=== PATIENT | female | born 1930 | race Caucasian/White ===

== ENCOUNTER 2018-03-07 20:17 | Inpatient (IN) | payer MEDICARE ==
[~2018-03-07] VITALS: Ht 160 cm; Wt 50.0 kg
[2018-03-07 20:33] VITALS: BP 135/75; PULSE 103; RESP 18; TEMP 98.4; O2SAT 95
[2018-03-07] MEDS ORDERED: SIMV10TA PO (21:13)
[2018-03-07] MEDS ORDERED: MULT-65 PO (21:13)
[2018-03-07] MEDS ORDERED: ASPI81CH7 CHEW (21:13)
[2018-03-07] MEDS ORDERED: GLUC500C5 PO (21:13)
[2018-03-07 21:14] VITALS: RESP 20; TEMP 100.4; O2SAT 96
--- NOTE | 2018-03-07 21:14 | PD ---
HPI Chief Complaint: Pain: Acute or Chronic Time Seen by Provider: 20:54 Travel History International Travel<30 days: No Contact w/Intl Traveler<30days: No Traveled to known affect area: No History of Present Illness HPI This is an 87-year-old female who has a history of porcine aortic valve replacement, pacemaker, presents with her daughter for evaluation. For the past 3 weeks she has had a cough for the cough is occasionally productive with clear sputum. She has had some dyspnea on exertion as well. Today she developed pain and swelling in her right calf. The pain is an aching pain which is worse when walking, improved with use of Tylenol. She was seen at an urgent care center where she was noted to have a fever of 101.2. She was sent here for further evaluation of the symptoms. Her daughter reports that she is from [place], travel down here in November and was planning on returning to [place] in 3 days. She denies any abdominal pain, dysuria, chest pain, nausea, vomiting , flank pain, open wounds. She has no history of PE, DVT, CHF. The daughter notes that she was treated in October for pneumonia. No other complaints at this time. PFSH Past Medical History Cardiovascular Problems: Yes (aortic valve replacement 2010) Diminished Hearing: Yes Pneumonia: Yes Influenza Vaccination: No Past Surgical History Body Medical Devices: pacemaker Cardiac Surgery: Yes (aortic valve repl-t, pacemaker) Gynecologic Surgery: Yes (hysterectomy) Social History Alcohol Use: Yes (occas) Tobacco Use: No Substance Use: No Allergies-Medications (Allergen,Severity, Reaction): Coded Allergies: No Known Allergies (Unverified , 03/07/18) Reported Meds & Prescriptions Reported Meds & Active Scripts Active Potassium Chloride ER (Potassium Chloride) 20 Meq Tab 20 Meq PO DAILY PRN Lasix (Furosemide) 20 Mg Tab 20 Mg PO DAILY PRN Cefuroxime (Cefuroxime Axetil) 500 Mg Tab 500 Mg PO BID Start antibiotics on 03/09/18 Azithromycin 250 Mg Tab 500 Mg PO DAILY Reported Glucosamine (Glucosamine Sulfate) 500 Mg Cap 500 Mg PO DAILY Multi-Vitamin Daily (Multiple Vitamin) 1 Tab Tab 1 Tab PO DAILY Simvastatin 10 Mg Tab 10 Mg PO DAILY Aspirin Children's (Aspirin) 81 Mg Chew 81 Mg CHEW DAILY Review of Systems Except as stated in HPI: all other systems reviewed are Neg Physical Exam Narrative GENERAL: Pleasant well-developed well-nourished female no acute distress. Temperature 100.4. SKIN: Warm and dry. HEAD: Atraumatic. Normocephalic. EYES: Pupils equal and round. No scleral icterus. No injection or drainage. ENT: No nasal bleeding or discharge. Mucous membranes pink and moist. NECK: Trachea midline. No JVD. CARDIOVASCULAR: Regular rate and rhythm. No murmur appreciated. RESPIRATORY: No accessory muscle use. Some crackles noted at the lung bases. GASTROINTESTINAL: Abdomen soft, non-tender, nondistended. Hepatic and splenic margins not palpable. MUSCULOSKELETAL: No obvious deformities. 1+ pitting edema right pretibial region. No edema in the left lower extremity. No tenderness to palpation of the right calf or thigh. 2+ dorsalis pedis pulse bilaterally. NEUROLOGICAL: Awake and alert. No obvious cranial nerve deficits. Motor grossly within normal limits. Normal speech. Data Data Last Documented VS Vital Signs Date Time Temp Pulse Resp B/P (MAP) Pulse Ox O2 Delivery O2 Flow Rate FiO2 03/07/18 21:14 96 Room Air 03/07/18 21:14 100.4 03/07/18 21:14 20 03/07/18 20:33 103 135/75 (95) Orders Orders Sepsis Workup Initiated (03/07/18 ) Electrocardiogram (03/07/18 21:08) Complete Blood Count With Diff (03/07/18 21:08) Comprehensive Metabolic Panel (03/07/18 21:08) Prothrombin Time / Inr (Pt) (03/07/18 21:08) Act Partial Throm Time (Ptt) (03/07/18 21:08) Lactic Acid Sepsis Protocol (03/07/18 21:08) Magnesium (Mg) (03/07/18 21:08) Ckmb (Isoenzyme) Profile (03/07/18 21:08) Troponin I (03/07/18 21:08) Urinalysis - C+S If Indicated (03/07/18 21:08) Influenzae A/B Antigen (03/07/18 21:08) Blood Culture (03/07/18 21:08) Chest, Single Ap (03/07/18 21:08) Blood Glucose (03/07/18 21:08) Ecg Monitoring (03/07/18 21:08) Iv Access Insert/Monitor (03/07/18 21:08) Oximetry (03/07/18 21:08) Oxygen Administration (03/07/18 21:08) B-Type Natriuretic Peptide (03/07/18 21:08) Ct Pulmonary Angiogram (03/07/18 21:08) Us Leg Venous Doppler (03/07/18 21:08) Acetaminophen (Tylenol) (03/07/18 21:15) Ceftriaxone Inj (Rocephin Inj) (03/07/18 21:45) Azithromycin Inj (Zithromax Inj) (03/07/18 21:45) Sodium Chlor 0.9% 1000 Ml Inj (Ns 1000 M (03/07/18 21:48) CKMB (03/07/18 21:25) CKMB% (03/07/18 21:25) Iohexol 350 Inj (Omnipaque 350 Inj) (03/07/18 23:01) Admit Order (Ed Use Only) (03/08/18 ) Diabetes Physician / Telemetry [email or web address] (03/08/18 00:04) Activity Oob With Assistance (03/08/18 00:04) Notify Dr: Other (03/08/18 00:04) Labs Laboratory Tests Test 03/07/18 21:25 03/07/18 21:45 White Blood Count 12.8 TH/MM3 Red Blood Count 4.72 MIL/MM3 Hemoglobin 13.7 GM/DL Hematocrit 41.8 % Mean Corpuscular Volume 88.6 FL Mean Corpuscular Hemoglobin 29.0 PG Mean Corpuscular Hemoglobin Concent 32.7 % Red Cell Distribution Width 15.0 % Platelet Count 170 TH/MM3 Mean Platelet Volume 10.1 FL Neutrophils (%) (Auto) 87.6 % Lymphocytes (%) (Auto) 4.4 % Monocytes (%) (Auto) 7.3 % Eosinophils (%) (Auto) 0.2 % Basophils (%) (Auto) 0.5 % Neutrophils # (Auto) 11.2 TH/MM3 Lymphocytes # (Auto) 0.6 TH/MM3 Monocytes # (Auto) 0.9 TH/MM3 Eosinophils # (Auto) 0.0 TH/MM3 Basophils # (Auto) 0.1 TH/MM3 CBC Comment DIFF FINAL Differential Comment Prothrombin Time 11.2 SEC Prothromb Time International Ratio 1.1 RATIO Activated Partial Thromboplast Time 22.9 SEC Blood Urea Nitrogen 17 MG/DL Creatinine 1.04 MG/DL Random Glucose 124 MG/DL Total Protein 7.2 GM/DL Albumin 3.3 GM/DL Calcium Level 8.9 MG/DL Magnesium Level 2.2 MG/DL Alkaline Phosphatase 113 U/L Aspartate Amino Transf (AST/SGOT) 74 U/L Alanine Aminotransferase (ALT/SGPT) 52 U/L Total Bilirubin 0.6 MG/DL Sodium Level 142 MEQ/L Potassium Level 4.3 MEQ/L Chloride Level 106 MEQ/L Carbon Dioxide Level 26.7 MEQ/L Anion Gap 9 MEQ/L Estimat Glomerular Filtration Rate 50 ML/MIN Lactic Acid Level 1.3 mmol/L Total Creatine Kinase 115 U/L Creatine Kinase MB 2.6 NG/ML Troponin I 0.03 NG/ML B-Type Natriuretic Peptide 868 PG/ML Urine Color YELLOW Urine Turbidity CLEAR Urine pH 6.5 Urine Specific [place] 1.014 Urine Protein 30 mg/dL Urine Glucose (UA) NEG mg/dL Urine Ketones NEG mg/dL Urine Occult Blood SMALL Urine Nitrite NEG Urine Bilirubin NEG Urine Urobilinogen LESS THAN 2.0 MG/DL Urine Leukocyte Esterase NEG Urine RBC 2 /hpf Urine WBC 1 /hpf Urine Squamous Epithelial Cells <1 /hpf Urine Mucus FEW /lpf Microscopic Urinalysis Comment CATH-CULT NOT IND MDM Medical Decision Making Medical Screen Exam Complete: Yes Emergency Medical Condition: Yes Medical Record Reviewed: Yes Interpretation(s) Right lower extremity ultrasound CONCLUSION: 1. The study is negative for lower extremity deep venous thrombosis. CBC reveals WBC count of 12.8 with 87% neutrophils, CMP reveals a GFR 50, BNP is 868. Urinalysis reveals small blood, 30 protein otherwise unremarkable Differential Diagnosis DVT, pneumonia, sepsis, CHF, PE Narrative Course The patient was placed on ECG monitoring pulse oximetry. A 12-lead EKG was obtained. Lab work, chest x-ray, CT pulmonary angiogram, right lower extremity Doppler ultrasound, blood cultures, urinalysis have been ordered. Patient was given IV Rocephin and azithromycin. At the end of my shift the patient was signed out pending CT pulmonary angiogram. Scripts Potassium Chloride ER (Potassium Chloride ER) 20 Meq Tab 20 MEQ PO DAILY Y for Take with Lasix, #30 TAB 0 Refills Prov: Satya Louie DO 03/08/18 Furosemide (Lasix) 20 Mg Tab 20 MG PO DAILY Y for leg swelling, #30 TAB 0 Refills Prov: Satya Louie DO 03/08/18 Cefuroxime (Cefuroxime) 500 Mg Tab 500 MG PO BID for Infection, #12 TAB 0 Refills Start antibiotics on 03/09/18 Prov: Satya Louie DO 03/08/18 Azithromycin (Azithromycin) 250 Mg Tab 500 MG PO DAILY for Infection, #3 TAB Prov: Satya Louie DO 03/08/18 Lowell Thomas March 07, 2018 21:14
[2018-03-07] MEDS ORDERED: ACETAMINOPHEN 325 MG TAB PO ONE (21:15)
--- NOTE | 2018-03-07 21:41 | RADRPT ---
EXAM DATE: 03/07/2018 9:35 PM EDT AGE/SEX: 87 years / Female INDICATIONS: Fever for one day. CLINICAL DATA: This is the patient's initial encounter. Patient reports that signs and symptoms have been present for 1 day and indicates a pain score of 0/10. MEDICAL/SURGICAL HISTORY: None. Pacemaker. Aortic valve replacement. COMPARISON: No prior [place] exams available for comparison. FINDINGS: A single AP portable erect view of the chest was obtained and demonstrates the patient is status post median sternotomy. There is a left subclavian A-V sequential transvenous pacer in place. The heart s ize appears mildly prominent. Mild patchy opacity is present at the lung bases with no distinct effus ion. Bony thorax is intact. There are multiple overlying electrocardiogram leads. CONCLUSION: 1. Mild patchy opacity at the lung bases which may represent scarring. 2. Status post median sternotomy with mild cardiomegaly and no perihilar edema. Electronically signed by: Satya iBlly MD 03/07/2018 9:39 PM EDT
[2018-03-07] MEDS ORDERED: cefTRIAXone INJ 1,000 MG in SODIUM CHLORIDE 0.9% INJ 100 ML IV ONE (21:45)
[2018-03-07] MEDS ORDERED: AZITHROMYCIN INJ 500 MG in SODIUM CHLOR 0.9% 250 ML INJ 250 ML IV ONE (21:45)
[2018-03-07] MEDS ORDERED: SODIUM CHLOR 0.9% 1000 ML INJ 1,000 ML IV SCH (21:48)
[2018-03-07 21:52] LABS: AUTOMATED NEUTROPHIL # 11.2 TH/MM3 (1.8-7.7); BASOPHIL # 0.1 TH/MM3 (0-0.2); BASOPHIL % 0.5 % (0.0-2.0); EOSINOPHIL % 0.2 % (0.0-4.0); HEMATOCRIT 41.8 % (35.0-46.0); HEMOGLOBIN 13.7 GM/DL (11.6-15.3); LYMPH % 4.4 % (9.0-44.0); LYMPHOCYTE # 0.6 TH/MM3 (1.0-4.8); MEAN CELL VOLUME 88.6 FL (80.0-100.0); MEAN CORPUSCULAR HGB CONC 32.7 % (32.0-36.0); MEAN PLATELET VOLUME 10.1 FL (7.0-11.0); MONO % 7.3 % (0.0-8.0); MONOCYTE # 0.9 TH/MM3 (0-0.9); NEUT % 87.6 % (16.0-70.0); PLATELET COUNT 170 TH/MM3 (150-450); RED BLOOD COUNT 4.72 MIL/MM3 (4.00-5.30); WHITE BLOOD COUNT 12.8 TH/MM3 (4.0-11.0)
--- NOTE | 2018-03-07 22:09 | RADRPT ---
EXAM DATE: 03/07/2018 10:06 PM EDT AGE/SEX: 87 years / Female INDICATIONS: Right calf swelling with shortness of breath. CLINICAL DATA: This is the patient's initial encounter. Patient reports that signs and symptoms have been present for 3 weeks and indicates a pain score of 3/10. MEDICAL/SURGICAL HISTORY: Cardiovascular disease. Hysterectomy. Pacemaker. Aortic valve replac ement. COMPARISON: No prior [place] exams available for comparison. No external comparison. TECHNIQUE: Venous ultrasound of both lower extremities was performed from the inguinal ligament to t he proximal calf. Real-time, color Doppler and spectral tracing, compression and augmentation techni ques were used. FINDINGS: There is normal compressibility of the deep venous system from the inguinal region to the proximal ca lf. No echogenic clot is seen in the lumen of the common femoral, femoral, popliteal, and posterior tibial veins. There is a normal response of the venous system to proximal and distal augmentation an d respiration. CONCLUSION: 1. The study is negative for lower extremity deep venous thrombosis. Electronically signed by: Kwabena Coleman MD 03/07/2018 10:08 PM EDT
[2018-03-07 22:12] LABS: INTERNATIONAL NORMALIZED RATIO 1.1 RATIO; PROTHROMBIN TIME - PATIENT 11.2 SEC (9.8-11.6)
[2018-03-07 22:14] LABS: ALBUMIN 3.3 GM/DL (3.4-5.0); AST (GOT) 74 U/L (15-37); BICARBONATE 26.7 MEQ/L (21.0-32.0); BLOOD UREA NITROGEN 17 MG/DL (7-18); CALCIUM 8.9 MG/DL (8.5-10.1); CHLORIDE 106 MEQ/L (98-107); CREATININE 1.04 MG/DL (0.50-1.00); GLOMERULAR FILTRATION RATE 50 ML/MIN (>89); GLUCOSE,RANDOM 124 MG/DL (74-106); MAGNESIUM 2.2 MG/DL (1.5-2.5); SODIUM (NA) 142 MEQ/L (136-145)
[2018-03-07 22:15] LABS: ALT (GPT) 52 U/L (10-53)
[2018-03-07 22:19] LABS: ALKALINE PHOSPHATASE 113 U/L (45-117); TOTAL BILIRUBIN ADULT 0.6 MG/DL (0.2-1.0); TOTAL PROTEIN 7.2 GM/DL (6.4-8.2); TROPONIN I 0.03 NG/ML (0.02-0.05)
[2018-03-07 22:23] LABS: BILIRUBIN, URINE NEG (NEG); BLOOD, URINE SMALL (NEG); GLUCOSE,URINE NEG (NEG); KETONE, URINE NEG (NEG); MUCUS URINE FEW /lpf (OCC); NITRITE,URINE NEG (NEG); PH, URINE 6.5 (5.0-8.5); SQUAMOUS EPITHELIAL CELL URINE <1 /hpf (0-5); URINE COLOR YELLOW (YELLW/STRAW); URINE LEUKOCYTE ESTERASE NEG (NEG)
[2018-03-07] MEDS ORDERED: IOHEXOL 350 MG/ML 10 ML VIAL (for RAD DIAG) IVCONTRAST ONE (23:01)
--- NOTE | 2018-03-07 23:02 | PD ---
Physical Exam Date Seen by Provider: March 07, 2018 Time Seen by Provider: 23:01 Narrative accepted patient care@ 2300 GENERAL: Elderly female with supplemental oxygen in place resting supine in no acute respiratory distress with O2 saturation on 2 L/min nasal cannula 93%. SKIN: Warm and dry. HEAD: Normocephalic. EYES: No scleral icterus. No injection or drainage. NECK: Supple, trachea midline. No JVD or lymphadenopathy. CARDIOVASCULAR: Regular rate and rhythm without murmurs, gallops, or rubs. RESPIRATORY: Breath sounds equal bilaterally. No accessory muscle use. Bibasilar crackles to auscultation. GASTROINTESTINAL: Abdomen soft, non-tender, nondistended. MUSCULOSKELETAL: No cyanosis, or edema. Right lower extremity redness increased warmth tenderness and edema of the lower leg sparing the foot. Bilateral radial and dorsalis pedis pulses 2+ to palpation. BACK: Nontender without obvious deformity. No CVA tenderness. Data Data Last Documented VS Vital Signs Date Time Temp Pulse Resp B/P (MAP) Pulse Ox O2 Delivery O2 Flow Rate FiO2 03/07/18 21:14 96 Room Air 03/07/18 21:14 100.4 03/07/18 21:14 20 03/07/18 20:33 103 135/75 (95) Orders Orders Sepsis Workup Initiated (03/07/18 ) Electrocardiogram (03/07/18 21:08) Complete Blood Count With Diff (03/07/18 21:08) Comprehensive Metabolic Panel (03/07/18 21:08) Prothrombin Time / Inr (Pt) (03/07/18 21:08) Act Partial Throm Time (Ptt) (03/07/18 21:08) Lactic Acid Sepsis Protocol (03/07/18 21:08) Magnesium (Mg) (03/07/18 21:08) Ckmb (Isoenzyme) Profile (03/07/18 21:08) Troponin I (03/07/18 21:08) Urinalysis - C+S If Indicated (03/07/18 21:08) Influenzae A/B Antigen (03/07/18 21:08) Blood Culture (03/07/18 21:08) Chest, Single Ap (03/07/18 21:08) Blood Glucose (03/07/18 21:08) Ecg Monitoring (03/07/18 21:08) Iv Access Insert/Monitor (03/07/18 21:08) Oximetry (03/07/18 21:08) Oxygen Administration (03/07/18 21:08) B-Type Natriuretic Peptide (03/07/18 21:08) Ct Pulmonary Angiogram (03/07/18 21:08) Us Leg Venous Doppler (03/07/18 21:08) Acetaminophen (Tylenol) (03/07/18 21:15) Ceftriaxone Inj (Rocephin Inj) (03/07/18 21:45) Azithromycin Inj (Zithromax Inj) (03/07/18 21:45) Sodium Chlor 0.9% 1000 Ml Inj (Ns 1000 M (03/07/18 21:48) CKMB (03/07/18 21:25) CKMB% (03/07/18 21:25) Iohexol 350 Inj (Omnipaque 350 Inj) (03/07/18 23:01) Admit Order (Ed Use Only) (03/08/18 ) Terminal System Operator / Telemetry [email or web address] (03/08/18 00:04) Activity Oob With Assistance (03/08/18 00:04) Notify Dr: Other (03/08/18 00:04) Labs Laboratory Tests Test 03/07/18 21:25 03/07/18 21:45 White Blood Count 12.8 TH/MM3 Red Blood Count 4.72 MIL/MM3 Hemoglobin 13.7 GM/DL Hematocrit 41.8 % Mean Corpuscular Volume 88.6 FL Mean Corpuscular Hemoglobin 29.0 PG Mean Corpuscular Hemoglobin Concent 32.7 % Red Cell Distribution Width 15.0 % Platelet Count 170 TH/MM3 Mean Platelet Volume 10.1 FL Neutrophils (%) (Auto) 87.6 % Lymphocytes (%) (Auto) 4.4 % Monocytes (%) (Auto) 7.3 % Eosinophils (%) (Auto) 0.2 % Basophils (%) (Auto) 0.5 % Neutrophils # (Auto) 11.2 TH/MM3 Lymphocytes # (Auto) 0.6 TH/MM3 Monocytes # (Auto) 0.9 TH/MM3 Eosinophils # (Auto) 0.0 TH/MM3 Basophils # (Auto) 0.1 TH/MM3 CBC Comment DIFF FINAL Differential Comment Prothrombin Time 11.2 SEC Prothromb Time International Ratio 1.1 RATIO Activated Partial Thromboplast Time 22.9 SEC Blood Urea Nitrogen 17 MG/DL Creatinine 1.04 MG/DL Random Glucose 124 MG/DL Total Protein 7.2 GM/DL Albumin 3.3 GM/DL Calcium Level 8.9 MG/DL Magnesium Level 2.2 MG/DL Alkaline Phosphatase 113 U/L Aspartate Amino Transf (AST/SGOT) 74 U/L Alanine Aminotransferase (ALT/SGPT) 52 U/L Total Bilirubin 0.6 MG/DL Sodium Level 142 MEQ/L Potassium Level 4.3 MEQ/L Chloride Level 106 MEQ/L Carbon Dioxide Level 26.7 MEQ/L Anion Gap 9 MEQ/L Estimat Glomerular Filtration Rate 50 ML/MIN Lactic Acid Level 1.3 mmol/L Total Creatine Kinase 115 U/L Creatine Kinase MB 2.6 NG/ML Troponin I 0.03 NG/ML B-Type Natriuretic Peptide 868 PG/ML Urine Color YELLOW Urine Turbidity CLEAR Urine pH 6.5 Urine Specific [place] 1.014 Urine Protein 30 mg/dL Urine Glucose (UA) NEG mg/dL Urine Ketones NEG mg/dL Urine Occult Blood SMALL Urine Nitrite NEG Urine Bilirubin NEG Urine Urobilinogen LESS THAN 2.0 MG/DL Urine Leukocyte Esterase NEG Urine RBC 2 /hpf Urine WBC 1 /hpf Urine Squamous Epithelial Cells <1 /hpf Urine Mucus FEW /lpf Microscopic Urinalysis Comment CATH-CULT NOT IND MDM Medical Record Reviewed: Yes Supervised Visit with SHERIF: Yes (And mid-level provider) Differential Diagnosis Febrile illness, sepsis, Sirs, cellulitis, DVT, PE, CHF, pneumonia, bronchitis, viral syndrome, ACS Narrative Course I, Dr. Cat, have reviewed the advance practice practitioner's documentation and am in agreement, met with the patient face to face, made the diagnosis, and the medical decision making was done by me. *My assessment and Findings: 87-year-old female with 3 weeks of cough productive of clear sputum more recently developing fever and redness and swelling of the right lower extremity. Patient had no chest pain has history of porcine valve replacement CABG and 2 pillow orthopnea. Patient is visiting from [place] with plans to return on Sunday. Patient has been here for over a month. Patient was seen in urgent care and encouraged to come to the emergency room for evaluation for DVT and for febrile illness. Patient denies any chest pain. Patient does not typically use supplemental oxygen. Patient has had dyspnea on exertion. No report of hemoptysis. Right lower leg has been painful. Patient did take acetaminophen for pain. At urgent care temperature was 101.2F without any antipyretic therapy administered. Febrile illness, sepsis, pneumonia, DVT, cellulitis, PE, CHF, ACS Concur with IV access cardiac monitoring with continuous pulse oximetry supplemental oxygen EKG CBC metabolic panel lactic acid blood cultures chest x- ray ultrasound of right lower extremity to evaluate for DVT PE protocol CT and administration of IV antibiotics for community-acquired pneumonia Patient evaluated and has bibasilar crackles right lower extremity has increased redness warmth tenderness and lower leg edema without foot involvement. Patient is identified to have leukocytosis normal range lactic acid EKG is paced rhythm troponin I is 0.03 not elevated however BNP is elevated at 868. No prior history of CHF. Patient appears to have pleural effusion mild volume overload received one-time dose of Lasix 20 mg IV has received IV antibiotics for community-acquired pneumonia which will also cover for cellulitis with Rocephin and azithromycin. Patient's case discussed with on-call medicine for admission for ongoing serial enzymes gentle diuresis and IV antibiotics. Patient and patient's daughter agreeable with admission. Patient's case discussed with on-call medicine [facility] MD Dr Raymond. Sepsis Criteria SIRS Criteria (2 or more): Temp > 100.9 or < 96.8, WBC > 46220, < 4000 or > 10 % bands Sepsis Criteria (SIRS+source): Infect source susp/known (cellulitis RLE) Physician Communication Physician Communication discussed with Dr Raymond Diagnosis Primary Impression: Febrile illness, acute Additional Impressions: Cellulitis Sepsis Pulmonary vascular congestion Admitting Information Admitting Physician Requests: Admit Luanne Cat MD March 07, 2018 23:02
--- NOTE | 2018-03-07 23:15 | RADRPT ---
EXAM DATE: 03/07/2018 11:06 PM EDT AGE/SEX: 87 years / Female INDICATIONS: Right leg pain. CLINICAL DATA: This is the patient's initial encounter. Patient reports that signs and symptoms have been present for 1 day and indicates a pain score of 0/10. MEDICAL/SURGICAL HISTORY: None. . Aortic valve replacement. RADIATION DOSE: 5.58 CTDI (mGy) COMPARISON: No prior [place] exams available for comparison. TECHNIQUE: Volumetric scanning was performed using a multi-row detector CT scanner during bolus infu julieta of 50 ml Omnipaque 350 (iohexol) nonionic water-soluble contrast as a single exam dose. The allie a was post processed with a variety of visualization algorithms including full volume maximum intensi ty projection and sliding thin slab reformation. Using automated exposure control and adjustment of the mA and/or kV according to patient size, radiation dose was kept as low as reasonably achievable t o obtain optimal diagnostic quality images. FINDINGS: Pulmonary Arteries: No filling defects are seen in the pulmonary arteries out to the subsegmental ve ssels. The left and right pulmonary arteries are normal in diameter. Lung: There is a focal area of consolidation or atelectasis at the lateral right lower lobe and patc hy areas of consolidation or atelectasis in the posterior lower lobes bilaterally. There is subpleura l atelectasis or consolidation seen at the medial inferior left lingula.. Effusion: There are mild bilateral pleural effusions. Mediastinum: No evidence of mediastinal or hilar adenopathy. There is a pacemaker seen in the left c hest. The patient is status post sternotomy. Other: The axilla is unremarkable. CONCLUSION: 1. No pulmonary embolus. 2. Patchy areas of consolidation or atelectasis at the lower lungs. 3. Bilateral mild pleural effusions.. Electronically signed by: Rodríguez Hastings MD 03/07/2018 11:14 PM EDT
[2018-03-08] VITALS (8 sets, daily range): BP systolic 103–138; BP diastolic 55–67; PULSE 65–84; RESP 17–19; TEMP 98.1; O2SAT 93–96
[2018-03-08] MEDS ORDERED: FUROSEMIDE 20 MG/2 ML VIAL IV PUSH ONE ×2 (00:15)
[2018-03-08] MEDS ORDERED: NALOXONE HCL 0.4 MG/ML AMP IV PUSH PRN (00:15)
[2018-03-08] MEDS ORDERED: SENNOSIDES 8.6 MG TAB PO PRN (00:15)
[2018-03-08] MEDS ORDERED: ONDANSETRON ODT 4 MG TAB PO PRN (00:15)
[2018-03-08] MEDS ORDERED: SODIUM CHLORIDE 0.9% FLUSH 10 ML FLUSH IV FLUSH PRN (00:15)
[2018-03-08] MEDS ORDERED: LACTULOSE SYRUP 20 GM/30 ML CUP PO PRN (00:15)
[2018-03-08] MEDS ORDERED: ACETAMINOPHEN 325 MG TAB PO PRN (00:15)
[2018-03-08] MEDS ORDERED: MAGNESIUM HYDROXIDE SUSP 30 ML CUP PO PRN (00:15)
[2018-03-08] MEDS ORDERED: BISACODYL 10 MG SUPP RECTAL PRN (00:15)
--- NOTE | 2018-03-08 00:25 | HHI.HP ---
[facility] Unknown Admission Diagnosis sepsis, cellulitis, pulm vasc congestion Diagnoses: Chief Complaint: Shortness of breath, right lower extremity redness Travel History International Travel<30 Days: No Contact w/Intl Traveler <30 Da: No Traveled to Known Affected Are: No History of Present Illness 87-year-old female with a history of porcine aortic valve replacement, pacemaker and presents to the ED with complaints of a cough, shortness of breath and right lower extremity redness. Patient states for the last 3 weeks she has had a cough with intermittent shortness of breath on exertion. Sputum production is clear. She presented today to an urgent care for evaluation and was found to have a 101 fever and sent to the ED for evaluation. Patient was diagnosed in October for pneumonia and treated according to patient she has not been completely healed. Family was concerned because she is supposed to be on a plane Sunday fly back home to concern for a DVT right lower extremity. Patient does follow with a kosher inspector in she follows up valve replacement. She denies associated chest pain, chills, dysuria, headaches. Denies any open wounds. Review of Systems Except as stated in HPI: all other systems reviewed are Neg Past Family Social History Past Medical History Hyperlipidemia Past Surgical History Pacemaker Hysterectomy Porcine aortic valve replacement Reported Medications Reported Meds & Active Scripts Active Reported Glucosamine (Glucosamine Sulfate) 500 Mg Cap 500 Mg PO DAILY Multi-Vitamin Daily (Multiple Vitamin) 1 Tab Tab 1 Tab PO DAILY Simvastatin 10 Mg Tab 10 Mg PO DAILY Aspirin Children's (Aspirin) 81 Mg Chew 81 Mg CHEW DAILY Allergies: Coded Allergies: No Known Allergies (Unverified , 03/07/18) Active Ordered Medications Current Medications Medications (Trade) Dose Ordered Sig/Shannan Route Start Time Stop Time Status Last Admin (NS Flush) 2 ml UNSCH PRN IV FLUSH 03/08/18 00:15 (NS Flush) 2 ml BID IV FLUSH 03/08/18 09:00 (Tylenol) 650 mg Q4H PRN PO 03/08/18 00:15 (Lovenox Inj) 40 mg Q24H SQ 03/08/18 01:00 (Narcan Inj) 0.4 mg UNSCH PRN IV PUSH 03/08/18 00:15 (Milk Of Magnesia Liq) 30 ml Q12H PRN PO 03/08/18 00:15 (Senokot) 17.2 mg Q12H PRN PO 03/08/18 00:15 (Dulcolax Supp) 10 mg DAILY PRN RECTAL 03/08/18 00:15 (Lactulose Liq) 30 ml DAILY PRN PO 03/08/18 00:15 (Zofran Odt) 4 mg Q6H PRN PO 03/08/18 00:15 Ceftriaxone Sodium 2000 mg/ Sodium Chloride 100 ml @ 200 mls/hr Q24H IV 03/08/18 09:00 (Zithromax) 500 mg DAILY PO 03/08/18 09:00 (Lasix Inj) 20 mg DAILY IV PUSH 03/08/18 09:00 03/11/18 08:59 (Aspirin Chew) 81 mg DAILY CHEW 03/08/18 09:00 UNV Non-Formulary Medication 10 mg DAILY PO 03/08/18 09:00 UNV Family History Dad: Pancreatic cancer Social History Tobacco use: Denies Alcohol use rarely Physical Exam Vital Signs Vital Signs Date Time Temp Pulse Resp B/P (MAP) Pulse Ox O2 Delivery O2 Flow Rate FiO2 03/07/18 21:14 96 Room Air 03/07/18 21:14 100.4 03/07/18 21:14 20 96 Room Air 03/07/18 20:33 98.4 103 18 135/75 (95) 95 Physical Exam GENERAL: This is a well-nourished, well-developed patient, in no apparent distress. SKIN: Mild erythema around right ankle HEAD: Atraumatic. Normocephalic. EYES: Pupils equal round and reactive. CARDIOVASCULAR: Regular rate and rhythm without murmurs, gallops, or rubs. RESPIRATORY: Crackles bilateral bases GASTROINTESTINAL: Abdomen soft, non-tender, nondistended. No hepato-splenomegaly , or palpable masses. No guarding. MUSCULOSKELETAL: Extremities without clubbing, cyanosis, or edema. No joint tenderness, effusion, or edema noted. No calf tenderness. NEUROLOGICAL: Awake and alert. Normal speech. Laboratory Laboratory Tests Test 03/07/18 21:25 03/07/18 21:45 White Blood Count 12.8 Red Blood Count 4.72 Hemoglobin 13.7 Hematocrit 41.8 Mean Corpuscular Volume 88.6 Mean Corpuscular Hemoglobin 29.0 Mean Corpuscular Hemoglobin Concent 32.7 Red Cell Distribution Width 15.0 Platelet Count 170 Mean Platelet Volume 10.1 Neutrophils (%) (Auto) 87.6 Lymphocytes (%) (Auto) 4.4 Monocytes (%) (Auto) 7.3 Eosinophils (%) (Auto) 0.2 Basophils (%) (Auto) 0.5 Neutrophils # (Auto) 11.2 Lymphocytes # (Auto) 0.6 Monocytes # (Auto) 0.9 Eosinophils # (Auto) 0.0 Basophils # (Auto) 0.1 CBC Comment DIFF FINAL Differential Comment Prothrombin Time 11.2 Prothromb Time International Ratio 1.1 Activated Partial Thromboplast Time 22.9 Blood Urea Nitrogen 17 Creatinine 1.04 Random Glucose 124 Total Protein 7.2 Albumin 3.3 Calcium Level 8.9 Magnesium Level 2.2 Alkaline Phosphatase 113 Aspartate Amino Transf (AST/SGOT) 74 Alanine Aminotransferase (ALT/SGPT) 52 Total Bilirubin 0.6 Sodium Level 142 Potassium Level 4.3 Chloride Level 106 Carbon Dioxide Level 26.7 Anion Gap 9 Estimat Glomerular Filtration Rate 50 Lactic Acid Level 1.3 Total Creatine Kinase 115 Creatine Kinase MB 2.6 Troponin I 0.03 B-Type Natriuretic Peptide 868 Urine Color YELLOW Urine Turbidity CLEAR Urine pH 6.5 Urine Specific [place] 1.014 Urine Protein 30 Urine Glucose (UA) NEG Urine Ketones NEG Urine Occult Blood SMALL Urine Nitrite NEG Urine Bilirubin NEG Urine Urobilinogen LESS THAN 2.0 Urine Leukocyte Esterase NEG Urine RBC 2 Urine WBC 1 Urine Squamous Epithelial Cells <1 Urine Mucus FEW Microscopic Urinalysis Comment CATH-CULT NOT IND Date/Time Source Procedure Growth Status 03/07/18 21:25 Blood Peripheral Aerobic Blood Culture Pending Received 03/07/18 21:25 Blood Peripheral Anaerobic Blood Culture Pending Received 03/07/18 21:40 Nasal Aspirate Influenza Types A,B Antigen (YU) - Final NEGATIVE FOR FLU A AND B ANTIGEN.... Complete Result Diagram: 03/07/18212403/07/182124 Imaging Last Impressions Lower Extremity Ultrasound 03/07/182107 Signed Impressions: CONCLUSION: 1. The study is negative for lower extremity deep venous thrombosis. Chest X-Ray 03/07/182107 Signed Impressions: CONCLUSION: 1. Mild patchy opacity at the lung bases which may represent scarring. 2. Status post median sternotomy with mild cardiomegaly and no perihilar edema . CT Angiography 03/07/182107 Signed Impressions: CONCLUSION: 1. No pulmonary embolus. 2. Patchy areas of consolidation or atelectasis at the lower lungs. 3. Bilateral mild pleural effusions.. Caprini VTE Risk Assessment Caprini VTE Risk Assessment: No/Low Risk (score <= 1) Caprini Risk Assessment Model Point Value = 1 Point Value = 2 Point Value = 3 Point Value = 5 Age 41-60 Minor surgery BMI > 25 kg/m2 Swollen legs Varicose veins or History of unexplained or recurrent spontaneous Oral contraceptives or hormone replacement Sepsis (< 1 month) Serious lung disease, including pneumonia (< 1 month) Abnormal pulmonary function Acute myocardial infarction Congestive heart failure (< 1 month) History of inflammatory bowel disease Medical patient at bed rest Age 61-74 Arthroscopic surgery Major open surgery (> 45 min) Laparoscopic surgery (> 45 min) Malignancy Confined to bed (> 72 hours) Immobilizing plaster cast Central venous access Age >= 75 History of VTE Family history of VTE Factor V Leiden Prothrombin [id number] Lupus anticoagulant Anticardiolipin antibodies Elevated serum homocysteine Heparin-induced thrombocytopenia Other congenital or acquired thrombophilia Stroke (< 1 month) Elective arthroplasty Hip, pelvis, or leg fracture Acute spinal cord injury (< 1 month) Prophylaxis Regimen Total Risk Factor Score Risk Level Prophylaxis Regimen 0-1 Low Early ambulation 2 Moderate Order ONE of the following: *Sequential Compression Device (SCD) *Heparin 5000 units SQ BID 3-4 Higher Order ONE of the following medications: *Heparin 5000 units SQ TID *Enoxaparin/Lovenox 40 mg SQ daily (WT < 150 kg, CrCl > 30 mL/min) *Enoxaparin/Lovenox 30 mg SQ daily (WT < 150 kg, CrCl > 10-29 mL/min) *Enoxaparin/Lovenox 30 mg SQ BID (WT < 150 kg, CrCl > 30 mL/min) AND/OR *Sequential Compression Device (SCD) 5 or more Highest Order ONE of the following medications: *Heparin 5000 units SQ TID (Preferred with Epidurals) *Enoxaparin/Lovenox 40 mg SQ daily (WT < 150 kg, CrCl > 30 mL/min) *Enoxaparin/Lovenox 30 mg SQ daily (WT < 150 kg, CrCl > 10-29 mL/min) *Enoxaparin/Lovenox 30 mg SQ BID (WT < 150 kg, CrCl > 30 mL/min) AND *Sequential Compression Device (SCD) Assessment and Plan Assessment and Plan 87-year-old female with a history of porcine aortic valve replacement, pacemaker and presents to the ED with complaints of a cough, shortness of breath and right lower extremity redness. Sepsis WBC 12.8, heart rate 103,pneumonia Chest CTA negative for PE but shows patchy areas of consolidation in the lower lungs, bilateral mild pleural effusions BNP 868, lactic acid 1.3 Flu negative, UA negative -Rocephin and azithromycin IV -40 mg IV Lasix given 1 then 20 mg IV daily -Patient has appointment in [place] on March 15 with her kosher inspector, daughter states they will request an echocardiogram at this appointment. -Blood culture pending Lower extremity cellulitis, mild, no edema Lower extremity ultrasound negative for DVT -Continue to monitor, according to patient's daughter redness has significantly improved Hyperlipidemia, chronic-resume home medications, heart healthy diet DVT prophylaxis: Lovenox Discussed Condition With Patient, patient's daughter and RN Physician Certification 2 Midnight Certification Type: Admission for Inpatient Services Order for Inpatient Services The services are ordered in accordance with Medicare regulations or non- Medicare payer requirements, as applicable. In the case of services not specified as inpatient-only, they are appropriately provided as inpatient services in accordance with the 2-midnight benchmark. Estimated LOS (days): 2 days is the estimated time the patient will need to remain in the hospital, assuming treatment plan goals are met and no additional complications. Post-Hospital Plan: Home Natalie Avalos March 08, 2018 00:25
[2018-03-08] MEDS ORDERED: ENOXAPARIN SODIUM 40 MG/0.4 ML SYRINGE SQ SCH (01:00)
[2018-03-08] MEDS ORDERED: cefTRIAXone INJ 2,000 MG in SODIUM CHLORIDE 0.9% INJ 100 ML IV SCH (09:00)
[2018-03-08] MEDS ORDERED: FUROSEMIDE 20 MG/2 ML VIAL IV PUSH SCH (09:00)
[2018-03-08] MEDS ORDERED: PRAVASTATIN SOD 20 MG TAB PO SCH (09:00)
[2018-03-08] MEDS ORDERED: ASPIRIN 81 MG CHEW TAB CHEW SCH (09:00)
[2018-03-08] MEDS ORDERED: AZITHROMYCIN 250 MG TAB PO SCH (09:00)
[2018-03-08] MEDS ORDERED: SODIUM CHLORIDE 0.9% FLUSH 10 ML FLUSH IV FLUSH SCH (09:00)
[2018-03-08] MEDS ORDERED: FURO1TAB62 PO (11:15)
[2018-03-08] MEDS ORDERED: POTA-163 PO (11:15)
[2018-03-08] MEDS ORDERED: CEFU1TAB20 PO (11:15)
[2018-03-08] MEDS ORDERED: AZIT250T3 PO (11:15)
--- NOTE | 2018-03-08 11:16 | HHI.DCPOC ---
Discharge Care Plan Diagnosis: (1) Pneumonia (2) Leg swelling (3) Pulmonary vascular congestion (4) Sepsis Goals to Promote Your Health * To prevent worsening of your condition and complications * To maintain your health at the optimal level Directions to Meet Your Goals Take your medications as prescribed Follow your dietary instruction Follow activity as directed Keep your appointments as scheduled Take your immunizations and boosters as scheduled If your symptoms worsen call your PCP, if no PCP go to Urgent Care Center or Emergency Room Smoking is Dangerous to Your Health. Avoid second hand smoke Call the 24-hour hour crisis hotline for domestic abuse at Satya Louie DO March 08, 2018 11:16
--- NOTE | 2018-03-08 11:20 | HHI.PR ---
Subjective Remarks The pt was feeling well and wanted to go home. She said her legs were a lot better. She was breathing comfortably. Discussed with nursing, no concerns. Objective Vitals Vital Signs Date Time Temp Pulse Resp B/P (MAP) Pulse Ox O2 Delivery O2 Flow Rate FiO2 03/08/18 10:49 84 18 132/67 (88) 96 Nasal Cannula 2.00 03/08/18 07:43 93 Nasal Cannula 2.00 03/08/18 07:25 79 18 106/55 (72) 93 Nasal Cannula 2.00 03/08/18 06:00 71 17 104/55 (71) 93 Nasal Cannula 2.00 03/08/18 05:00 65 17 103/58 (73) 95 Room Air 03/08/18 02:00 98.1 74 19 115/61 (79) 94 Nasal Cannula 2.00 03/08/18 00:55 78 17 105/59 (74) 93 Nasal Cannula 2.00 03/07/18 21:14 96 Room Air 03/07/18 21:14 100.4 03/07/18 21:14 20 96 Room Air 03/07/18 20:33 98.4 103 18 135/75 (95) 95 I/O 03/07/18 03/07/18 03/07/18 03/08/18 03/08/18 03/08/18 07:00 15:00 23:00 07:00 15:00 23:00 Intake Total 100 ml 250 ml Output Total 1600 ml Balance 100 ml -1350 ml Intake IV Total 100 ml 250 ml Output Urine Total 1600 ml Result Diagram: 03/07/18212403/07/182124 Imaging Last Impressions Lower Extremity Ultrasound 03/07/182107 Signed Impressions: CONCLUSION: 1. The study is negative for lower extremity deep venous thrombosis. Chest X-Ray 03/07/182107 Signed Impressions: CONCLUSION: 1. Mild patchy opacity at the lung bases which may represent scarring. 2. Status post median sternotomy with mild cardiomegaly and no perihilar edema . CT Angiography 03/07/182107 Signed Impressions: CONCLUSION: 1. No pulmonary embolus. 2. Patchy areas of consolidation or atelectasis at the lower lungs. 3. Bilateral mild pleural effusions.. Objective Remarks GENERAL: This is a well-nourished, well-developed patient, in no apparent distress. SKIN: Mild erythema on shins. HEAD: Atraumatic. Normocephalic. EYES: Pupils equal round and reactive. CARDIOVASCULAR: Regular rate and rhythm without murmurs, gallops, or rubs. RESPIRATORY: CTAB. No W/R/R. GASTROINTESTINAL: Abdomen soft, non-tender, nondistended. No hepato-splenomegaly , or palpable masses. No guarding. MUSCULOSKELETAL: Extremities without clubbing, cyanosis, or edema. No joint tenderness, effusion, or edema noted. NEUROLOGICAL: Awake and alert. Normal speech. A/P Assessment and Plan 87-year-old female with a history of porcine aortic valve replacement, pacemaker and presents to the ED with complaints of a cough, shortness of breath and right lower extremity redness. Sepsis WBC 12.8, heart rate 103,pneumonia Chest CTA negative for PE but shows patchy areas of consolidation in the lower lungs, bilateral mild pleural effusions BNP 868, lactic acid 1.3 Flu negative, UA negative -Rocephin and azithromycin IV. Change to PO Ceftin and azithromycin upon discharge. -40 mg IV Lasix given 1 then 20 mg IV daily. Change to Lasix 20 mg daily prn leg swelling. Supplement potassium when taking Lasix. 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 -Blood culture pending. NGTD. Lower extremity cellulitis, mild, no edema Lower extremity ultrasound negative for DVT Erythema is likely s/t venous stasis changes. - Lasix as needed for leg swelling. Hyperlipidemia, chronic-resume home medications, heart healthy diet DVT prophylaxis: Lovenox Discharge Planning D/c home as pt feels at baseline, is ambulating well and tolerating PO intake Satya Louie DO March 08, 2018 11:20
--- NOTE | 2018-03-08 18:00 | EKG ---
Date Performed: 03/07/2018 Time Performed: 22:01:39 PTAGE: 87 years EKG: ELECTRONIC VENTRICULAR PACEMAKER ABNORMAL RHYTHM ECG NO PREVIOUS TRACING DOCTOR: Lorraine Zeng Interpretating Date/Time 03/08/2018 17:57:58
== END 2018-03-08 15:33 | disposition home or self-care (01) | DRG 871 ==
LOC: NEPC 20:17 → NEDA 03-08 00:06 → OBSVTOIN 03-08 00:07 → NEDH 03-08 04:07
PROVIDERS: ADMIT Hospitalist; ATTEND Hospitalist
DX: A41.9 Sepsis, unspecified organism (principal); J18.9 Pneumonia, unspecified organism; J90 Pleural effusion, not elsewhere classified; J98.11 Atelectasis; L03.115 Cellulitis of right lower limb; H91.90 Unspecified hearing loss, unspecified ear; E78.5 Hyperlipidemia, unspecified; I87.8 Other specified disorders of veins; Z95.0 Presence of cardiac pacemaker; Z95.3 Presence of xenogenic heart valve
CPT/HCPCS: 71045; 71275; 80053; 81001; 82550; 82552; 83605; 83735; 83880; 84484; 85025; 85610; 85730; 87040; 87804; 93005; 93971; 96365; 96366; J0456; J0696; J1940; J7030; J7050; Q9967